=== PATIENT | male | born 1960 | race Caucasian/White ===

== ENCOUNTER 2018-05-31 16:24 | Emergency (ER) | payer OTHER, SELFPAY ==
[2018-05-31] VITALS (33 sets, daily range): BP systolic 123–157; BP diastolic 74–108; PULSE 50–68; RESP 12–23; TEMP 35.9–36.9; O2SAT 93–100
--- NOTE | 2018-05-31 16:33 | ED.GENADUL_ITS ---
Discharge Plan Disposition Patient Disposition: [facility] Discharge Details Chief Complaint: GenMedical Clinical Impression: Ethylene glycol poisoning Primary Care Provider: Arturo Collier ED Provider: Nicholas Slaughter Home Meds and New Rx's Prescriptions: No Action aspirin 81 MG tablet,chewable 81 mg PO DAILY Qty: 90 RF: 0 Atorvastatin Calcium 10 MG tablet 10 mg PO HS Qty: 90 RF: 3 prednisone 20 MG tablet 2 tab PO DAILY Qty: 14 RF: 0 Discharge Data Discharge Date/Time-TO BE ENTERED AT DEPARTURE: 05/31/18 20:06 Medical Decision Making 18:00 --57-year-old male presents after accidental ingestion of mouthful of ethylene glycol around 3:30 PM. Asymptomatic. No signs of toxic ingestion on exam. Labs reviewed and anion gap acidosis noted at 13.7. Called and spoke with [facility] and discussed patient presentation, ED course and diagnostic results as well as limitation of diagnostic capbility. They recommend IV hydration, repeating blood levels at 4 hours to assess for worsening acidosis. If no worsening acidosis they recommend holding an additional 4 hours and rechecking levels. If clinical status remains stable and no worsening acidosis, they recommend discharge. If clinical status worsens or patient more acidotic, they recommend transfer to a facility where treatment can be provided and ideally ethylene glycol can be checked. 18:50 -- ETOH elevated at 170. I am concerned that I cannot obtain serum osmolality or ethylene glycol level here at [facility]. Also no fomepizole and no ethanol availability to treat emergently. I called and spoke with Dr. Matias at [facility] who will accept the patient in transfer. Awaiting medic availability. HPI General Mode of arrival: ambulatory . Date/Time Provider Initiated Documentation: 05/31/18 16:30 . Limitations to Documentation: no limitations . Information obtained by: patient . HPI Narrative: 57-year-old male presents with chief complaint of accidental ingestion of ethylene glycol. Patient notes that about 1 hour prior to arrival he accidentally took a large swig of antifreeze Zerex. This ingestion was accidental. No SI. Patient denies associated abdominal pain and nausea/vomiting. Of note, patient consumed 4 alcoholic beverages today prior to this ingestion. Related Data Home Medications Medication Instructions Recorded Confirmed aspirin 81 mg PO DAILY #90 tab-cap 03/01/17 05/31/18 prednisone 2 tab PO DAILY #14 tab 01/11/18 05/31/18 Previous Rx's Medication Instructions Recorded prednisone 2 tab PO DAILY #14 tab 01/11/18 Allergies Allergy/AdvReac Type Severity Reaction Status Date / Time No Known Allergies Allergy Unverified 05/31/18 16:34 Review of Systems Constitutional Denies body ache(s) and Denies fatigue Eyes Denies change in vision Cardiovascular Denies syncope, Denies palpitations and Denies dyspnea Respiratory Denies dyspnea Gastrointestinal Denies nausea and Denies vomiting Neurologic Denies syncope Psychiatric Denies suicidal ideation Endocrine Denies fatigue and Denies palpitations PFSH Family History Mother Essential hypertension Father Neoplasm Sister No problems noted. Sister No problems noted. Sister No problems noted. Brother No problems noted. Daughter No problems noted. Daughter No problems noted. Social History Smoking/Tobacco Use Status: Former Tobacco Use Surgical History Arthroplasty of knee HERNIA REPAIR Social History Smoking/Tobacco Use Status: Former Tobacco Use Exam Const General: cooperative and no acute distress Orientation: alert, awake and oriented x3 Other: smells of etoh HENMT Head: normocephalic and atraumatic Mouth: moist mucous membranes Eyes Conjunctivae: normal conjunctivae Sclera: normal sclerae EOM: EOM intact bilaterally Neck Neck: trachea midline and supple Resp Auscultation: clear to auscultation bilaterally, no rales, no rhonchi and no wheezes Cardio Jugular venous pressure: no JVD Rate: regular rate and not tachycardic Rhythm: regular rhythm GI Palpation: soft, not firm, no guarding, no masses, not rigid and nontender Skin General skin exam: no rashes or lesions noted Neuro General: alert, awake, oriented x3 and tone normal Extrem General: no edema Psych Appearance: grossly normal Mental Status: mental status grossly normal Speech and Movement: speech and movement normal
[2018-05-31] MEDS: Normal Saline Flush 10 ML SYR IVP (16:40)
[2018-05-31] MEDS: Normal Saline 1,000 ML 1000 ML IV (16:40)
[2018-05-31 16:57] LABS: Abs Immature Grans 0.03 k/cumm (0.0-0.09); Absolute Basophil Count 0.03 k/cumm (0.0-0.2); Absolute Eosinophil Count 0.23 k/cumm (0.0-0.7); Absolute Lymphocyte Count 2.04 k/cumm (1.2-3.4); Absolute Monocyte Count 0.55 k/cumm (0.11-0.7); Absolute Neutrophil Count 2.19 k/cumm (1.2-6.7); Basophils % 0.6; Eosinophils % 4.5; HCT 42.2 % (40.0-50.0); HGB 14.7 g/dL (13.5-17.5); Immature Grans % 0.6; Lymphocytes % 40.2; Mean Corp. HGB Concentration 34.8 g/dL (32.0-36.0); Mean Corpuscular Hemoglobin 31.7 pg (27.0-33.0); Mean Corpuscular Volume 91.1 fL (80-95); Mean Platelet Volume 9.2 fL (8.0-11.0); Monocytes % 10.8; Neutrophils % 43.3; Platelet Count 186 x1000/uL (130-400); RBC 4.63 m/cumm (4.50-6.00); RBC Distribution Width 12.9 % (11.8-14.1); White Blood Cell Count 5.07 k/cumm (4.4-10.8)
[2018-05-31 17:08] LABS: ALT 55 U/L (12-78); Albumin 4.3 g/dL (3.4-5.0); Alkaline Phosphatase 50 U/L (46-116); Anion Gap 13.7 mmol/L (3-11); BUN 16 mg/dL (7-18); Bilirubin, Total 0.2 mg/dL (0.2-1.0); CO2 23.3 mmol/L (21.0-32.0); Calcium 8.8 mg/dL (8.5-10.1); Chloride 104 mmol/L (98-107); Glucose 116 mg/dL (70-100); Potassium 3.9 mmol/L (3.5-5.1); Sodium 141 mmol/L (136-145); Total Protein 7.6 g/dL (6.4-8.2)
[2018-05-31 17:45] LABS: AST 42 U/L (15-37)
[2018-05-31 18:24] LABS: ETHANOL BLOOD 170.5 mg/dL (<3)
[2018-05-31] MEDS: Normal Saline 1,000 ML 150 ML IV (18:33)
[2018-05-31 18:41] LABS: BE (Venous) -1.8 mmol/L (-3-3); HCO3 (Venous) 24 mmol/L (22-28); O2 Sat (Venous) 92 % (70-80); TCO2 (Venous) 22 mmol/L (22-29); pCO2 (Venous) 45 mm/Hg (34-47); pH (Venous) 7.34 (7.32-7.43); pO2 (Venous) 70 mm/Hg (28-44)
[2018-06-01 18:07] LABS: Osmolality Serum 351 mos/kg (275-295)
== END 2018-05-31 20:06 | disposition short-term general hospital (02) ==
LOC: ER 19:02
PROVIDERS: Emergency Provider Student in an Organized Health Care Education/Training Program; PCP Family Medicine
DX: T51.8X1A Toxic effect of other alcohols, accidental (unintentional), initial encounter (principal); E87.2 Acidosis; F10.10 Alcohol abuse, uncomplicated; Y90.6 Blood alcohol level of 120-199 mg/100 ml; I10 Essential (primary) hypertension
CPT/HCPCS: 36415; 80053; 82805; 96360; 96361; 99285; 80320; 83930; 85025

== ENCOUNTER 2018-10-02 06:56 | Outpatient (CLI) | payer OTHER, SELFPAY ==
[2018-10-02 14:14] LABS: Hemoglobin A1C 6.9 % (4.5-6.2)
== END 2018-10-02 07:16 ==
PROVIDERS: PCP Family Medicine; Visit Provider Family Medicine
DX: E11.9 Type 2 diabetes mellitus without complications (principal)
CPT/HCPCS: 36415; 83036

== ENCOUNTER 2019-04-26 12:16 | Outpatient (CLI) | payer OTHER, SELFPAY ==
--- NOTE | 2019-04-26 09:15 | DI.RAD_ITS ---
EXAM: XR FOOT LT COMPLETE INDICATION: contusion plantar aspect left foot, CONTUSION LT FOOT [id number]. COMPARISON: No exams were available for comparison TECHNIQUE: 2D digital imaging was performed. FINDINGS: No fracture or dislocation is seen. There are minimal degenerative changes. There is a tiny planta r calcaneal spur. IMPRESSION: No acute abnormality.
== END 2019-04-26 12:36 ==
PROVIDERS: PCP Family Medicine; Visit Provider Nurse Practitioner
DX: S90.32XA Contusion of left foot, initial encounter (principal); M77.52 Other enthesopathy of left foot and ankle
CPT/HCPCS: 73630

== ENCOUNTER 2020-09-03 03:01 | Outpatient (CLI) | payer BC, SELFPAY ==
[2020-09-03 12:47] LABS: CREATININE 1.1 mg/dL (0.70-1.30); Calculated LDL 159 mg/dL (<100); Cholesterol 250 mg/dL (<200); HDL Cholesterol 48 mg/dL (40-60); Potassium 4.5 mmol/L (3.5-5.1); Triglyceride 218 mg/dL (<150)
[2020-09-03 18:54] LABS: PSA, Screening 0.6 ng/mL (0.0-3.5)
== END 2020-09-03 03:02 | disposition home or self-care (01) ==
LOC: LOS 03:01
PROVIDERS: PCP Family Medicine; Visit Provider Family Medicine
DX: I10 Essential (primary) hypertension (principal); E78.5 Hyperlipidemia, unspecified; Z12.5 Encounter for screening for malignant neoplasm of prostate
CPT/HCPCS: 36415; 80061; 84153; 82565; 84132

== ENCOUNTER 2021-03-22 16:54 | Outpatient (REF) | payer BC, SELFPAY ==
[2021-03-24 13:33] LABS: COVID-19 RT-PCR UVMMC Result Negative (Negative)
== END 2021-03-22 16:55 | disposition home or self-care (01) ==
LOC: NCHCN 16:54
PROVIDERS: PCP Family Medicine; Visit Provider Physician Assistant
DX: Z20.822 Contact with and (suspected) exposure to COVID-19 (principal)
CPT/HCPCS: U0003

== ENCOUNTER 2021-06-26 16:22 | Outpatient (REF) | payer BC, SELFPAY ==
[2021-06-27 10:42] LABS: COVID-19 RT-PCR UVMMC Result Negative (Negative)
== END 2021-06-26 16:23 | disposition home or self-care (01) ==
LOC: LBN 16:22
PROVIDERS: PCP Family Medicine; Visit Provider Physician Assistant
DX: Z20.822 Contact with and (suspected) exposure to COVID-19 (principal); J34.89 Other specified disorders of nose and nasal sinuses
CPT/HCPCS: U0003

== ENCOUNTER 2021-12-03 01:33 | Outpatient (CLI) | payer BC, SELFPAY ==
[2021-12-03 12:31] LABS: CREATININE 1.3 mg/dL (0.70-1.30); Calculated LDL 132 mg/dL (<100); Cholesterol 246 mg/dL (<200); Estimated GFR 56.31 (mL/min/1.73m2); HDL Cholesterol 49 mg/dL (40-60); Potassium 4.5 mmol/L (3.5-5.1); Triglyceride 328 mg/dL (<150)
== END 2021-12-03 01:34 | disposition home or self-care (01) ==
LOC: LOS 01:33
PROVIDERS: PCP Family Medicine; Visit Provider Family Medicine
DX: I10 Essential (primary) hypertension (principal); E78.5 Hyperlipidemia, unspecified
CPT/HCPCS: 36415; 80061; 82565; 84132

== ENCOUNTER 2022-03-30 07:58 | Outpatient (CLI) | payer BC, SELFPAY ==
[2022-03-30 12:39] LABS: ALT 64 U/L (16-63); AST 32 U/L (15-37)
[2022-03-30 13:00] LABS: Hemoglobin A1C 6.6 % (<5.7)
== END 2022-03-30 07:59 | disposition home or self-care (01) ==
PROVIDERS: PCP Family Medicine; Referring Provider Family Medicine; Visit Provider Family Medicine
DX: E78.5 Hyperlipidemia, unspecified (principal); K76.0 Fatty (change of) liver, not elsewhere classified; R73.9 Hyperglycemia, unspecified
CPT/HCPCS: 36415; 83036; 84450; 84460

== ENCOUNTER 2022-03-30 08:52 | Outpatient (REF) | payer BC, SELFPAY ==
[2022-03-30 22:34] LABS: Albumin ug/mg Crea 13 (<30); Albumin, Ur 0.9 mg/dL (See Note); Creatinine, Ur 67.2 mg/dL (See Note)
== END 2022-03-30 08:53 | disposition home or self-care (01) ==
LOC: LBN 08:52
PROVIDERS: PCP Family Medicine; Visit Provider Family Medicine
DX: E11.9 Type 2 diabetes mellitus without complications (principal)
CPT/HCPCS: 82043; 82570

== ENCOUNTER 2022-04-04 07:25 | Emergency (ER) | payer BC, SELFPAY ==
[2022-04-04 07:28] VITALS: BP 154/79; PULSE 64; RESP 18; TEMP 37; O2SAT 98
--- NOTE | 2022-04-04 07:39 | ED.GENADUL_ITS ---
Discharge Plan Disposition Patient Disposition: HOME Condition: Good Discharge Details Clinical Impression: Foreign body of finger of left hand Primary Care Provider: Farshad Nascimento ED Provider: Bebe Slaughter Home Meds and New Rx's Prescriptions: New cephalexin 500 mg capsule 500 mg PO Q6H Qty: 3 0RF Continued albuterol sulfate [Proventil HFA] 90 mcg/actuation HFA aerosol inhaler 2 puff inhalation Q6H PRN (Reason: shortness of breath or wheezing) Qty: 6.7 0RF atorvastatin 20 mg tablet 20 mg PO QPM Qty: 30 2RF lisinopril 20 mg tablet 20 mg PO DAILY Qty: 90 3RF Rybelsus 7 mg tablet 7 mg PO DAILY Qty: 30 5RF (DME) blood sugar diagnostic Strip See Rx Instructions .ROUTE .MEDSUPPLY Qty: 100 3RF Rx Instructions: test once/day (DME) lancets [OneTouch Delica Lancets] 33 gauge misc See Rx Instructions .ROUTE .MEDSUPPLY Qty: 100 3RF Rx Instructions: test once/day Discharge Instructions Instructions: Finger Laceration (ED) Additional Instructions: Please return immediately to the emergency department if you develop any new or worsening symptoms, if your condition does not improve as expected, or if you become otherwise concerned. It is extremely important that you call soon as possible to make an appointment to be seen in follow-up for this visit by your primary care doctor. Referrals: Farshad Nascimento MD [Primary Care Provider] - Discharge Data Discharge Date/Time-TO BE ENTERED AT DEPARTURE: 04/04/22 10:02 Medical Decision Making Concern for foreign body, possible bony pathology of the left fifth digit. Exam/history at this time is not consistent with other injury of the hand/digits, tendon injury, acute emergent life-threatening process. Plan for x-rays. xrays show FB at the 5th PIP joint. I discussed case with ortho given need to open wound for FB removal, proximity to joint. I performed digital block of the left 5th digit. Dr. Bush at bedside, performed incision and FB removal without complication. He recommends no closure of wound, wound dressing with gauze, 24 hours of prophylactic Keflex. I had a discussion with Patient regarding return to emergency department precautions, home care, and importance of outpatient follow-up. Pt verbalizes understanding of the plan and is amenable. Patient discharged to home with clear plan for outpatient follow-up. All questions were answered. Disposition decision was made weighing the risks and benefits of hospitalization versus outpatient treatment, the risk for further decompensation, and the patient's wishes. Medical Records Medical records reviewed: Yes I reviewed the patient's medical records. Imaging Data Radiologic Study: Attestation: I personally reviewed and interpreted this imaging study as follows: Radiologist's impression: EXAM:? XR FINGER LT LITTLE CLINICAL HISTORY: ? trauma, concern for FB.? TECHNIQUE:? 2D digital imaging was performed.? Three views. COMPARISON:? None. FINDINGS: BONES: No acute fracture is present. No bony destructive lesion is seen. JOINTS: No dislocation present. SOFT TISSUE: There is a linear metallic foreign body seen in the volar soft tissues at the level of the proximal interphalangeal joint. IMPRESSION: Metallic soft tissue foreign body. HPI General Mode of arrival: ambulatory . Date/Time Provider Initiated Documentation: 04/04/22 07:35 . Limitations to Documentation: no limitations . Information obtained by: patient, RN notes reviewed and old records reviewed . HPI Narrative: Arturo Meadows is a 61-year-old man with history of [id number] diabetes, hyperlipidemia, hypertension presenting to the emergency department with finger injury. Patient reports that he was hammering metal when he felt a piece of metal enter his left fifth digit from the palmar surface at the PIP joint. Clinton freitas reports that he has pain in that area and cannot bend that digit. He denies any other injury, any other pain. Unsure of last tetanus dose. Patient reports that he was previously well in his usual state of health. No fever/cough/shortness of breath/vomiting/diarrhea/weakness/numbness/rash. Related Data Home Medications Medication Instructions Recorded Confirmed albuterol sulfate 90 mcg/actuation 2 puff inhalation Q6H PRN 08/10/21 04/04/22 aerosol inhaler (Proventil HFA) shortness of breath or wheezing #6.7 grams lisinopril 20 mg tablet 20 mg PO DAILY #90 tabs 10/07/21 04/04/22 semaglutide 7 mg tablet (Rybelsus) 7 mg PO DAILY #30 tabs 12/28/21 04/04/22 blood sugar diagnostic #100 ea 03/11/22 03/30/22 lancets 33 gauge (OneTouch Delica #100 ea 03/11/22 03/30/22 Lancets) atorvastatin 20 mg tablet 20 mg PO QPM #30 tabs 03/30/22 04/04/22 cephalexin 500 mg capsule 500 mg PO Q6H #3 caps 04/04/22 Previous Rx's Medication Instructions Recorded albuterol sulfate 90 mcg/actuation 2 puff inhalation Q6H PRN 08/10/21 aerosol inhaler (Proventil HFA) shortness of breath or wheezing #6.7 grams lisinopril 20 mg tablet 20 mg PO DAILY #90 tabs 10/07/21 semaglutide 7 mg tablet (Rybelsus) 7 mg PO DAILY #30 tabs 12/28/21 blood sugar diagnostic #100 ea 03/11/22 lancets 33 gauge (OneTouch Delica #100 ea 03/11/22 Lancets) atorvastatin 20 mg tablet 20 mg PO QPM #30 tabs 03/30/22 cephalexin 500 mg capsule 500 mg PO Q6H #3 caps 04/04/22 Allergies Allergy/AdvReac Type Severity Reaction Status Date / Time No Known Allergies Allergy Verified 04/04/22 07:31 General Stated Complaint: Laceration AUGUSTIN: 4 Review of Systems Narrative: Constitutional: denies fevers Eyes: denies eye pain ENT: denies ear pain, dental pain, sore throat Cardiovascular: denies chest pain Respiratory: denies SOB, cough GI: denies abdominal pain, vomiting, diarrhea : denies flank pain MSK: Reports pain at left fifth digit PIP joint, denies back pain, neck pain, other arthralgias, myalgias Skin: denies rash Neuro: denies headaches, numbness, weakness PFSH All Active Problems (Updated 04/04/22 @ 09:36 by Bebe Slaughter MD) Foreign body of finger of left hand (Acute) Hyperlipidemia LDL goal <70 (Acute) Chest pain (Acute) Sensorineural hearing loss (Acute) Tinnitus, right (Acute) Asymmetrical sensorineural hearing loss (Acute) Hearing loss (Acute) COVID-19 (Acute ~07/30/21) MARCELO (obstructive sleep apnea) (Chronic) Allergic rhinitis (Acute) Meralgia paresthetica (Acute) Type 2 diabetes mellitus (Chronic) Essential hypertension (Chronic 06/19/13) Carpal tunnel syndrome of left wrist (Chronic 09/15/16) 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 Rhinitis (Chronic) Alcohol abuse with alcohol-induced sleep disorder (Chronic) Mild atherosclerosis of carotid artery (Chronic) Medical History Contusion, foot Surgical History Arthroplasty of knee LEFT KNEE AND REPAIR HERNIA REPAIR RIGHT Family History Mother Essential hypertension Father Neoplasm LUNG Social History Smoking/Tobacco Use Status: Former Tobacco Use Smoking risk assessment performed?: Yes Alcohol Intake: current Alcohol Intake frequency: 0-2 drinks per day Alcohol type: beer Substance use type: does not use Caregiver/Support person: No Household members: spouse Housing: house Communication Needs: Hard of Hearing Do you need help understanding health information?: Rarely Pets and animals: Yes Pets and animals: dog(s) Do you think of yourself as: straight/heterosexual Current gender identity: male What is your relationship status?: How often do you talk on the phone with friends or family?: decline to answer How often do you get together with friends or relatives?: decline to answer How often do you attend anabaptism or advent services?: decline to answer Panel score (0-1 are the most socially isolated patients): 1 Duration: < 15 minutes/day Frequency: 1-2 times per week Mindy/Denominational: Anabaptist Special mindy needs: No Seatbelt use: always Helmet use: Yes Helmet use: sometimes Do you feel safe at home: Yes Do you feel safe in your relationship?: Yes Exam Narrative Exam Narrative: Constitutional: well and [id number], pleasant, conversing normally HENT: head atraumatic/normocephalic/normal inspection, mucous membranes moist Eyes: conjunctiva normal, sclera normal, pupils 3mm b/l Neck: no stridor, normal ROM, trachea midline Resp: normal work of breathing, speaking in full sentences Cardio: normal rate, normal rhythm Skin: warm, dry, normal color, no rash Neuro: alert, not altered, grossly non-focal, normal tone Ext:1 mm puncture wound at the palmar surface of the left fifth PIP joint, no edema, no bleeding. No other skin wound to hand. No tenderness to palpation of the hand or other digits. Brisk cap refill all digits. There is focal tenderness palpation of the left PIP joint, no tenderness to palpation of the DIP joint, MCP joint. Able to range other digits normally. Cannot flex fifth digit secondary to pain. Psych: normal mood, normal affect, normal behavior Course Vital Signs Vital signs: Vital Signs Temperature 37.0 C 04/04/22 07:28 Pulse 64 04/04/22 07:28 Respiratory Rate 18 04/04/22 07:28 Blood Pressure 154/79 H 04/04/22 07:28 Pulse Oximetry 98 04/04/22 07:28 Temperature 37.0 C 04/04/22 07:28 Temperature Source Temporal Artery Scan 04/04/22 07:28 Pulse 64 04/04/22 07:28 Respiratory Rate 18 04/04/22 07:28 Respiratory Effort Non-Labored 04/04/22 07:32 Blood Pressure 154/79 H 04/04/22 07:28 Blood Pressure Position Supine 04/04/22 07:28 Pulse Oximetry 98 04/04/22 07:28 Oxygen Delivery Method Room Air 04/04/22 07:28 Oxygen Flow Rate 0 04/04/22 07:28 Pain Level 8 04/04/22 07:32 Procedures Nerve Block Nerve Block 1: Time out performed: Yes Local Anesthetic: Lidocaine 1% Amount of anesthesia used (mL): 4 Side: left Nerve Blocks: digital Procedure Successful: Yes Patient Tolerated Procedure: well and no complications Complications: none PAWSS Have you Been Recently Intoxicated or Drunk Within the Last 30 days?: No Have you Ever Experienced Previous Episodes of Alcohol Withdrawal?: No Have you ever Experienced Withdrawal Seizures?: No Have you ever Experienced Delirium Tremens(DT)s?: No Have you ever undergone Alcohol Rehabilitation Treatment (i.e, inpt ot outpatient treatment programs)?: No Have you ever Experienced Blackouts?: No Have you ever Combined Alcohol with other Downers within the last 90 days?: No Have you ever Combined Alcohol with any other Substance of Abuse during the last 90 days?: No Positive Blood Alcohol level on Presentation? [PCS.BAL]: No Evidence of Increased Autonomic Activity (i.e. HR>120, tremor, sweating, agitation, nausea)?: No Result: 0
--- NOTE | 2022-04-04 07:59 | DI.VRAD_ITS ---
PROCEDURE INFORMATION: Exam: XR Left Finger(s) Exam date and time: 04/04/2022 7:46 AM Age: 61 years old Clinical indication: Injury or trauma; Other: Fb; Puncture; Left; Little finger TECHNIQUE: Imaging protocol: Radiologic exam of the Left fingers. Views: Minimum 2 views. COMPARISON: No relevant prior studies available. FINDINGS: Bones/joints: No acute fracture or dislocation Soft tissues: Linear radiopaque foreign body measuring 7 mm projecting adjacent to the proximal interphalangeal joint IMPRESSION: Linear radiopaque foreign body adjacent to the 5th proximal interphalangeal joint No acute fracture noted Dictated and Authenticated by: Jhonatan Parmar MD. Ordering:MEGAN Spence MD
--- NOTE | 2022-04-04 08:00 | DI.RAD_ITS ---
Exam(s) XR FINGER LT LITTLE EXAM: XR FINGER LT LITTLE CLINICAL HISTORY: trauma, concern for FB. TECHNIQUE: 2D digital imaging was performed. Three views. COMPARISON: None. FINDINGS: BONES: No acute fracture is present. No bony destructive lesion is seen. JOINTS: No dislocation present. SOFT TISSUE: There is a linear metallic foreign body seen in the volar soft tissues at the level of t he proximal interphalangeal joint. IMPRESSION: Metallic soft tissue foreign body. DATA REPOSITORY: RADIATION DOSE DELIVERED:
[2022-04-04] MEDS: Ibuprofen 600 MG TAB PO (09:02)
[2022-04-04] MEDS: Bacitracin 1 PACKET TP (09:36)
[2022-04-04] MEDS: Cephalexin 500 MG CAP PO (10:02)
[2022-04-04 10:04] VITALS: BP 154/79; PULSE 64; RESP 18; TEMP 37; O2SAT 98
== END 2022-04-04 10:02 | disposition home or self-care (01) ==
PROVIDERS: Emergency Provider Student in an Organized Health Care Education/Training Program; PCP Family Medicine
DX: S60.457A Superficial foreign body of left little finger, initial encounter (principal); I10 Essential (primary) hypertension; E11.9 Type 2 diabetes mellitus without complications; Z87.891 Personal history of nicotine dependence; W45.8XXA Other foreign body or object entering through skin, initial encounter; Y93.89 Activity, other specified; Z23 Encounter for immunization
CPT/HCPCS: 10120; 90471; 99283; 73140; 99284

== ENCOUNTER → 2022-04-19 01:19 | Outpatient (CLI) | payer BC, SELFPAY ==
--- NOTE | 2022-04-19 06:30 | DI.NM_ITS ---
APPROVED REPORT Exam: Exercise Treadmill Patient Location: Out-Patient Room/Bed: Stress Nurse: Galina Ross RN Ordering Provider:JOSE RAUL MALLORY, Contact Number: [phone] BMI: 29.95 Baseline Rhythm: Sinus Bradycardia/ 1DHB Indications: CHEST PAIN Medical History Medical History: MARCELO, COVID-19, DM II, HTN, ETOH Abuse, Former smoker, HLD Cardiac Medications: Semaglutide, Lisinopril Allergies: No known drug allergies Cardiac Risk Factors: HTN, Hyperlipidemia, Diabetes (non-insulin), Smoking (former) Previous Cardiac Procedures: None Pretest Chest Pain Characteristics: None Exercise History: Physically active Physical Disabilities: None Lung Sounds: Clear to auscultation Heart Sounds: Regular Stress Test Details Test: Exercise stress testing was performed using a Anand protocol. Nuclear Acquisition: Rest Tc-99m/Stress Tc-99m 1 day Rest Isotope: Tc-99m Sestamibi. Dose: 10.0 Date: 04/19/2022 Injection Time: 0900 Stress Isotope: Tc-99m Sestamibi. Dose: 32.0 Date: 04/19/2022 Injection Time: 1030 HR Resting HR Supine: 46 bpm Max Heart Rate (APMHR): 160.358381 bpm Resting HR Standin bpm Target HR (85% APMHR): 136.963774 bpm Max HR Achieved: 162 bpm % of APMHR: 101.25 Recovery HR: 82 bpm HR response to stress: Normal HR response to stress BP Resting BP Supine: 140/78 mmHg Resting BP Standin/78 mmHg Max BP: 188/78 mmHg Recovery BP: 142/70 mmHg BP response to stress: Normal blood pressure response to stress. ECG Resting ECG: Sinus Bradycardia, 1st degree AV block Ectopy: None Stress ECG: Sinus Tachycardia ST Change: Downsloping ST depression Lead(s): inferior leads Stage: [address] Deviation: 2 mm Arrhythmia: None Recovery ECG: Sinus Rhythm Recovery ST Change: No significant ST segment changes noted Recovery Arrhythmia: rare PAC Clinical Reason for Termination: Fatigue, Dyspnea Stress Symptoms: Dyspnea Exercise duration: 10 min33 sec Highest Stage Reached: Stage 4: 4.2 mph at 16% grade. Exercise capacity: 12.7 METs Larkin Treadmill Score: 10.1 Rate Pressure Product: 36009 Stress ECG Conclusion 1. Resting electrocardiogram showed poor R wave progression, minor ST abnormalities 2. Patient exercised on the Anand protocol and completed a workload of 12.7 METS, limited by dyspnea 3. Normal heart rate and blood pressure response to exercise. Patient achieved 101% of predicted hea rt rate for age 4. Electrocardiographic portion of the test was equivocal for myocardial ischemia 5. There were no significant dysrhythmias 6. See MPI report Larkin Treadmill Score is 10.1 which is Low risk. Stress Test Summary STAGE Time (mins) Speed (mph) Grade (%) HR BP SpO2 SYMPTOMS METS Supine 46 140/78 Standing 53 128/78 98 1 3 1.7 10 88 140/72 96 4.5 2 6 2.5 12 98 160/80 97 7 3 9 3.4 14 125 180/86 98 10 1 min recovery 140 182/72 98 3 min recovery 81 188/78 98 6 min recovery 82 142/70 98 MPI Conclusion Normal myocardial perfusion without evidence of ischemia or prior infarction EF 61%, normal wall motion Radiologist Interpretation Radiologist Interpretation by: Terrance John MD Interpretation Date/Time: 04/19/2022 16:58:29
== END ==
PROVIDERS: PCP Family Medicine; Visit Provider Family Medicine
DX: R07.9 Chest pain, unspecified (principal)
CPT/HCPCS: 78452; 93017

== ENCOUNTER 2022-08-30 02:14 | Outpatient (CLI) | payer BC, SELFPAY ==
[2022-08-30 12:30] LABS: ALT 58 U/L (16-63); AST 29 U/L (15-37)
[2022-09-01 09:20] LABS: Lab Add On Test DONE
[2022-09-01 09:51] LABS: Uric Acid 6.3 mg/dL (3.5-7.2)
== END 2022-08-30 02:15 | disposition home or self-care (01) ==
LOC: LOS 02:14
PROVIDERS: PCP Family Medicine; Visit Provider Family Medicine
DX: K76.0 Fatty (change of) liver, not elsewhere classified (principal); E78.5 Hyperlipidemia, unspecified; M10.9 Gout, unspecified
CPT/HCPCS: 36415; 84450; 84460; 84550

== ENCOUNTER 2022-09-01 08:11 | Outpatient (REF) | payer BC, SELFPAY ==
[2022-09-01 13:22] LABS: Microalb ug/mg Crea 13.9 ug/mg Cr
== END 2022-09-01 08:12 | disposition home or self-care (01) ==
LOC: LBN 08:11
PROVIDERS: PCP Family Medicine; Visit Provider Family Medicine
DX: E11.9 Type 2 diabetes mellitus without complications (principal)
CPT/HCPCS: 82043; 82570

== ENCOUNTER 2022-09-07 11:08 | Outpatient (CLI) | payer BC, SELFPAY ==
--- NOTE | 2022-09-07 10:00 | DI.RAD_ITS ---
Exam(s) XR HIP LT COMPLETE AP PELVIS EXAM: XR HIP LT COMPLETE AP PELVIS CLINICAL HISTORY: left hip pain. TECHNIQUE: 2D digital imaging was performed of the left hip. Two views were obtained. AP pelvis an d lateral left hip views were obtained. COMPARISON: No exams were available for comparison FINDINGS: BONES: No acute fracture is present. No bony destructive lesion is seen. JOINTS: No dislocation present. There is mild narrowing and spurring seen at the left hip. SOFT TISSUE: Normal. IMPRESSION: Mild degenerative changes of the left hip. DATA REPOSITORY: RADIATION DOSE DELIVERED:
== END 2022-09-07 11:28 ==
PROVIDERS: PCP Family Medicine; Visit Provider Family Medicine
DX: M25.552 Pain in left hip (principal); M16.12 Unilateral primary osteoarthritis, left hip
CPT/HCPCS: 73502

== ENCOUNTER → 2023-09-01 00:35 | Outpatient (CLI) | payer BC, SELFPAY ==
--- NOTE | 2023-09-01 07:30 | DI.US_ITS ---
APPROVED REPORT EXAM: Comprehensive 2D, Doppler, and color-flow Echocardiogram Patient Location: Out-Patient Corporate Associate Attorney: Maxi Velázquez RDCS (AE) Indications: murmur Conclusion Borderline concentric left ventricular hypertrophy. Ejection fraction is 65%. There is normal systo lic and diastolic function, normal wall motion Normal right ventricular size and function Both atria are normal size Aortic valve is sclerotic and trileaflet without stenosis or regurgitation There is no additional significant valvular disease Wall motion Left Ventricle The left ventricle is normal size. The left ventricular systolic function is normal. The left ventric ular ejection fraction is within the normal range. Borderline concentric left ventricular hypertrophy . The left ventricular diastolic function is normal. There is no ventricular septal defect visualized . LVEF is 64-68%. Right Ventricle The right ventricle is normal size. The right ventricular systolic function is normal. Atria The left atrium size is normal. The right atrium size is normal. The interatrial septum is intact wit h no evidence for an atrial septal defect. Aortic Valve The Aortic valve is sclerotic. No hemodynamically significant valvular aortic stenosis. No aortic reg urgitation is present. Mitral Valve The mitral valve is normal in structure. No evidence of mitral valve stenosis. Trace mitral regurgita tion. Tricuspid Valve The tricuspid valve is normal in structure. There is no tricuspid valve stenosis. Trace tricuspid reg urgitation. The RVSP is 7.8 mmHg. Pulmonic Valve The pulmonary valve is normal in structure. There is no pulmonic valvular stenosis. Trace pulmonic re gurgitation. Great Vessels The aortic root is normal in size. The ascending aorta is normal in size. Aortic arch is normal in ca liber. IVC is normal in size and collapses >50% with inspiration. Pericardium There is no pericardial effusion. 2D Dimensions IVSD d PLAX 1.10 cm M: 0.6-1.2 Ao Root d 2.85 cm M: 3.1 - 3.7 LVPW d PLAX 1.06 cm M: 0.6 - 1.2 Ao Asc Diam d 3.02 cm M: 2.6 - 3.4 LVID d PLAX 4.52 cm M: 4.2 - 5.8 LVDs 2.91 cm M: 2.5 - 4.0 LV EF Teichholz 65.3 % FS 35.70 % LV EDV (Teich) 93.5 mL LV ESV (Teich) 32.4 mL Stroke Vol Index (Teich) 32.33 M-Mode TAPSE 2.04 cm (M/F) >1.7 Auto EF LV EDV A4C 114.7 mL LV EDV A2C 97.8 mL LV EDV BP 107.4 mL LV ESV A4C 40.7 mL LV ESV A2C 31.1 mL LV ESV BP 36.0 mL LVEF(%) A4C 64.5 % LVEF(%) A2C 68.2 % LVEF(%) BP 66.5 % LV SV A4C 73.9 ml LV SV A2C 66.7 ml LV SV BP 71.4 ml LV CO A4C 4.3 L/min LV CO A2C 3.8 L/min LV CO BP 4.0 L/min HR A4C 57.88 BPM HR A2C 57.24 BPM LV EDV Index (BP) LA Volume LA Length A4C 5.5 cm LA Length A2C 4.5 cm LA Area A4C s 12.44 cm2 LA Area A2C s 13.50 cm2 LA Vol A4C A-L 23.92 mL LA Vol A2C A-L 34.30 mL LA Vol Biplane A-L 31.6 mL LA Vol/BSA A4C A-L LA Vol/BSA A2C A-L LA Vol/BSA BP A-L 16.7 mL/m2 LA Vol A4C MOD 23.3 mL LA Vol A2C MOD 33.1 mL LA Vol BP MOD 30.5 mL RA Volume RA Area A4C 8.9 cm2 RA ESV A4C (A-L) 19.2mL RA Vol/BSA A4C A-L RA Length A4C 3.5 cm RA ESV A4C (MOD) 17.1mL LV Diastology MV E' medial 0.095 (>0.07 m/s) MV E Vmax 0.91 (0.4-1.3 m/s) MV E/E' MED 9.51 (<14) MV A Vmax 0.75 (0.4-1.3 m/s) MV E' lateral 0.122 (>0.1 m/s) E/A Ratio 1.2 MV E/E' LAT 7.43 (<14) MV E' Average 0.109 m/s MV E/E'(average) 8.34 Aortic Valve AoV Vmax 2.00 m/s LVOT Vmax 1.10 m/s AoV Peak Grad 16.0 mmHg LVOT Peak Grad 4.8 mmHg AoV Area (Vmax) 1.19 cm2 LVOT VTI 0.246 m AoV VTI 0.443 m LVOT Mean Grad 2.5 mmHg AoV Mean Eris. 1.35 m/s LVOT SV 53.47 mL AoV Mean Grad 8.4 mmHg LVOT Diam s 1.65 cm AoV Area (VTI) 1.21 cm2 Velocity Ratio 0.55 Mitral Valve MV DT 223 (160-240 msec) Pulmonary Valve PV Vmax 1.17 (0.5-1.5 m/s) RVOT Vmax 0.61 m/s PV Peak Grad 5.5 mmHg RVOT Peak Gr. 1.5 mmHg PV Mean Eris 0.79 m/s RVOT VTI 0.153 m PV Mean Grad 2.9 mmHg RVOT Mean Gr. 0.9 mmHg Tricuspid Valve RA Pressure 3.00 mmHg TR Vmax 1.09 m/s TR Peak Grad 4.7 mmHg RVSP (TR) 7.8 mmHg
== END ==
PROVIDERS: PCP Family Medicine; Visit Provider Family Medicine
DX: R01.1 Cardiac murmur, unspecified (principal)
CPT/HCPCS: 93306

== ENCOUNTER 2023-09-06 15:34 | Outpatient (REF) | payer BC, SELFPAY ==
[2023-09-06 21:47] LABS: COMMENT (LAB VIEW ONLY) 206.19 mg/dL; Microalb ug/mg Crea 13.5 ug/mg Cr
== END 2023-09-06 15:35 | disposition home or self-care (01) ==
LOC: LBN 15:34
PROVIDERS: PCP Family Medicine; Visit Provider Family Medicine
DX: E11.9 Type 2 diabetes mellitus without complications (principal)
CPT/HCPCS: 82043; 82570

== ENCOUNTER 2023-09-28 05:47 | Outpatient (CLI) | payer BC, SELFPAY ==
[2023-09-28 12:43] LABS: CREATININE 1.1 mg/dL (0.70-1.30); Calculated LDL 78 mg/dL (<100); Cholesterol 155 mg/dL (<200); Estimated GFR 76.37 (mL/min/1.73m2); HDL Cholesterol 54 mg/dL (40-60); Potassium 4.3 mmol/L (3.5-5.1); Triglyceride 116 mg/dL (<150)
== END 2023-09-28 05:48 | disposition home or self-care (01) ==
LOC: LOS 05:47
PROVIDERS: PCP Family Medicine; Visit Provider Family Medicine
DX: I10 Essential (primary) hypertension (principal); E78.5 Hyperlipidemia, unspecified
CPT/HCPCS: 36415; 80061; 82565; 84132

== ENCOUNTER 2024-09-12 09:44 | Outpatient (CLI) | payer BC, SELFPAY ==
[2024-09-12 12:56] LABS: CREATININE 1.4 mg/dL (0.70-1.30); Calculated LDL 155 mg/dL (<100); Cholesterol 256 mg/dL (<200); Estimated GFR 56.83 (mL/min/1.73m2); HDL Cholesterol 57 mg/dL (>or=40); Potassium 4.5 mmol/L (3.5-5.1); Triglyceride 221 mg/dL (<150)
[2024-09-12 16:49] LABS: Lab Add On Test DONE
[2024-09-12 17:01] LABS: BUN 20 mg/dL (7-18)
[2024-09-12 18:32] LABS: PSA, Screening 0.9 ng/mL (<=4.5)
[2024-09-13 09:51] LABS: HIV-1/2 Ag & Ab Screen Negative (Negative)
[2024-09-13 09:56] LABS: HBs Antibody, Quant <3.1 mIU/mL (See Note); Hep B Surface Ab Negative (See Note); Hepatitis B Core Antibody Negative (Negative); Hepatitis B Surface Antigen Negative (Negative)
[2024-09-13 10:05] LABS: Hepatitis C Ab w Rflx HCV PCR Negative (Negative)
== END 2024-09-12 09:45 | disposition home or self-care (01) ==
LOC: LOS 09:44
PROVIDERS: PCP Family Medicine; Referring Provider Family Medicine; Visit Provider Family Medicine
DX: Z12.5 Encounter for screening for malignant neoplasm of prostate (principal); E78.5 Hyperlipidemia, unspecified; I10 Essential (primary) hypertension; Z11.59 Encounter for screening for other viral diseases; Z00.00 Encounter for general adult medical examination without abnormal findings
CPT/HCPCS: 36415; 80061; 84153; 84520; 86704; 86706; 86803; 87340; 87389; 82565; 84132

== ENCOUNTER 2024-09-12 11:25 | Outpatient (REF) | payer BC, SELFPAY ==
[2024-09-12 14:30] LABS: COMMENT (LAB VIEW ONLY) 153.39 mg/dL; Microalb ug/mg Crea 8.2 ug/mg Cr
== END 2024-09-12 11:26 | disposition home or self-care (01) ==
LOC: LBN 11:25
PROVIDERS: PCP Family Medicine; Visit Provider Family Medicine
DX: E11.9 Type 2 diabetes mellitus without complications (principal); I10 Essential (primary) hypertension; Z12.5 Encounter for screening for malignant neoplasm of prostate; E78.5 Hyperlipidemia, unspecified
CPT/HCPCS: 82043; 82570

== ENCOUNTER 2024-12-04 10:30 | Outpatient (CLI) | payer BC, SELFPAY ==
--- NOTE | 2024-12-04 10:00 | DI.RAD_ITS ---
Exam(s) XR WRIST LT COMP NAVICULAR EXAM: XR WRIST LT COMP NAVICULAR CLINICAL HISTORY: M25.532 Left wrist pain. TECHNIQUE: 2D digital imaging was performed. Three views. COMPARISON: CR,XR XR FINGER LT LITTLE from 04/04/2022 FINDINGS: BONES: No acute fracture is present. No bony destructive lesion is seen. JOINTS: The carpal bones are normally aligned. Mild degenerative changes at the radial carpal joint . SOFT TISSUE: Normal. IMPRESSION: Mild degenerative changes at the radiocarpal joint. DATA REPOSITORY: RADIATION DOSE DELIVERED:
== END 2024-12-04 10:50 ==
LOC: DI 10:30
PROVIDERS: PCP Family Medicine; Visit Provider Family Medicine
DX: M25.532 Pain in left wrist (principal)
CPT/HCPCS: 73110

== ENCOUNTER 2024-12-27 10:51 | Outpatient (CLI) | payer BC, SELFPAY ==
--- NOTE | 2024-12-27 09:30 | DI.RAD_ITS ---
Exam(s) XR WRIST LT COMP NAVICULAR EXAM: XR WRIST LT COMP NAVICULAR CLINICAL HISTORY: L wrist pain. TECHNIQUE: 2D digital imaging was performed of the left wrist. Four images were obtained. Scaphoid, PA, oblique and lateral views were obtained. COMPARISON: CR,XR XR FINGER LT LITTLE from 04/04/2022 CR XR WRIST LT COMP NAVICULAR from 12/04/2024 FINDINGS: BONES: No acute or healing fractures identified. No bony destructive lesion is seen. JOINTS: The carpal bones are normally aligned. SOFT TISSUE: There is a linear 2-3 mm density in the soft tissues adjacent to the proximal phalanx of the left thumb. This is unchanged and can be seen on the examination from 04/04/2022. No suspicious foreign bodies are seen. IMPRESSION: No acute abnormality. DATA REPOSITORY: RADIATION DOSE DELIVERED:
== END 2024-12-27 10:52 | disposition home or self-care (01) ==
LOC: DIORS 10:51
PROVIDERS: PCP Family Medicine; Visit Provider Physician Assistant
DX: M25.532 Pain in left wrist (principal); G56.02 Carpal tunnel syndrome, left upper limb; S69.92XA Unspecified injury of left wrist, hand and finger(s), initial encounter
CPT/HCPCS: 73110

== ENCOUNTER 2025-04-14 09:11 | Emergency (ER) | payer OTHER, SELFPAY ==
[2025-04-14] VITALS (26 sets, daily range): BP systolic 111–169; BP diastolic 71–95; PULSE 49–79; RESP 12–20; TEMP 36.6; O2SAT 87–100
--- NOTE | 2025-04-14 09:30 | DI.CT_ITS ---
Exam(s) CT BRAIN NECK CTA EXAM: CT BRAIN NECK CTA CLINICAL HISTORY: Vision blurriness, pulsitile. TECHNIQUE: Imaging Protocol: Axial CT angiography was performed with multi- slice acquisition and multi-planar and/or 3D reconstructions. CONTRAST MATERIAL: Intravenous: Omnipaque 350 contrast volume:70 mL COMPARISON: CT HEAD WITHOUT STROKE PROTOCOL from 01/03/2017 FINDINGS: CT Head W/O and W: Ventricles and Extra axial spaces: Normal in size and morphology for the patient's age. Hemorrhage: None. Cerebral parenchyma: There is no evidence of an acute territorial infarct or mass effect. There is a normal johnston-white matter differentiation. Midline shift: None. Brainstem/Cerebellum: Normal. Calvarium: Normal. Visualized Paranasal sinuses/Mastoids: There is mild mucosal thickening in the visualized paranasal sinuses. Mucous retention cysts are seen in the left sphenoid sinus in the right maxillary sinus. The mastoid air cells are clear. Soft Tissues: Unremarkable. Enhancement: Unremarkable. CTA Neck W: Common Carotid: Right: No dissection, occlusion or significant stenosis. Left: No dissection, occlusion or significant stenosis. External Carotid: Right: No occlusion or significant stenosis. Left: No occlusion or significant stenosis. Internal Carotid: Mild atherosclerotic calcification is seen at the origins of the internal carotid arteries but no significant stenosis is present. Right: No dissection, occlusion or significant stenosis. Left: No dissection, occlusion or significant stenosis. Vertebral Artery: Right: No dissection, occlusion or significant stenosis. Left: No dissection, occlusion or significant stenosis. Lung Apices: Normal. Bones: Within normal limits for the patient's age. Soft Tissues: Normal. Thyroid gland: Unremarkable. CTA Brain W: Internal Carotid Arteries: Normal. Anterior Cerebral Arteries: Right: No aneurysm, occlusion or significant stenosis. Left: No aneurysm, occlusion or significant stenosis. Middle Cerebral Arteries: Right: No aneurysm, occlusion or significant stenosis. Left: No aneurysm, occlusion or significant stenosis. Posterior Cerebral Arteries: The left posterior cerebral artery arises from the left posterior communicating artery which is a normal variant. Right: No aneurysm, occlusion or significant stenosis. Left: No aneurysm, occlusion or significant stenosis. Vertebral Arteries: Right: No aneurysm, occlusion or significant stenosis. Left: No aneurysm, occlusion or significant stenosis. Basilar Artery: No aneurysm, occlusion or significant stenosis. IMPRESSION: 1. No large vessel occlusion or significant stenosis on the CT angiography of the head. 2. No acute intracranial process. 3. No occlusion or significant stenosis on the CT angiography of the neck. RADIATION DOSE DELIVERED: 2,256.05mGy.cm Total DLP DATA REPOSITORY: All CT scans at this facility are submitted to the National Radiology Data Registry (NRDR) Dose Index Registry (DIR) with the [employer] (ACR). RADIATION OPTIMIZATION: All CT scans at this facility use at least one of these dose optimization techniques: automated exposure control; mA and/or kV adjustment per patient size (includes targeted exams where dose is matched to clinical indication); or iterative reconstruction.
--- NOTE | 2025-04-14 09:30 | RT.EKG_ITS ---
APPROVED REPORT Exam: Resting ECG Reason for Exam: CP Patient Location: E HR:49 bpm ECG Measurements Heart Rate 49 AXIS NE 239 P 64 QRSd 94 QRS 62 QT 427 T 84 QTc 385 Conclusion Sinus bradycardia, rate 49 1st degree HB, NE interval 239ms No STEMI No priors available for comparison
--- NOTE | 2025-04-14 09:43 | W.ED.GENAD ---
Discharge Plan Disposition Patient Disposition: Home Condition: Stable Discharge Details Clinical Impression: Chest tightness, Blurred vision, bilateral Primary Care Provider: Farshad Nascimento ED Provider: Tameka Moran Home Meds and New Rx's Prescriptions: New artificial tears(hypromellose) 0.5 % drops 1 drp ophthalmic (eye) 4-8XD PRNQty: 15 0RF No Action atorvastatin [Lipitor] 10 mg tablet 10 mg PO DAILY Qty: 30 2RF losartan 100 mg tablet 100 mg PO DAILY Qty: 90 3RF mometasone 50 mcg/actuation spray,non-aerosol 2 spray intranasal DAILY PRN (Reason: nasal congestion) Qty: 17 2RF Rx Instructions: administer into each nostril (DME) blood sugar diagnostic Strip See Rx Instructions .ROUTE .MEDSUPPLY Qty: 100 3RF Rx Instructions: test once/day (DME) lancets [OneTouch Delica Lancets] 33 gauge misc See Rx Instructions .ROUTE .MEDSUPPLY Qty: 100 3RF Rx Instructions: test once/day Rybelsus 14 mg tablet 14 mg PO DAILY Qty: 90 3RF Discharge Instructions Instructions: Chest Pain, Adult ED Additional Instructions: You were seen in the emergency department today for evaluation of blurry vision and tightness in her chest. In our department a full physical examination performed, had a reassuring EKG and laboratory studies. You had a CT scan of your brain and blood vessels that did not show any sign of stroke, blood vessel changes, or other abnormalities that would explain your symptoms. Your symptoms resolved after a dose of nitroglycerin but did not recur after that medicine wore off. I do recommend that we get you tied in with cardiology and reach out to your primary care provider to discuss this referral. You may require stress testing, cardiac echo, etc. I do recommend that you trial artificial tears, as the blurriness in your vision may be due to dry eye in the setting of screen use at work. I have sent a prescription for a bottle to your pharmacy, if these are cost prohibitive you can always purchase them [id number]. Please follow-up with your primary care provider in the next few days to discuss this visit and any symptoms that change, worsen, or persist. Thank you for allowing us to be part of your care. Stand Alone Forms: Work Release HPI General Mode of arrival: ambulatory. Date/Time Provider Initiated Documentation: 04/14/25 09:12. Limitations to Documentation: no limitations. Information obtained by: patient, family and old records reviewed. HPI Narrative: This is a 64-year-old male patient with a history of stroke, type 2 diabetes, MARCELO, presenting for evaluation of vision changes and chest tightness. The patient reports that at about 830 this morning he was working at his computer and noted that his eyes seem to be pulsating, with intermittent blurry vision left greater than right. He reports no eye pain, loss of vision, flashers or floaters. States that the symptoms have persisted, and his vision still feels blurry, though now it is primarily on the left side. He states that around the same time he developed some tightness in his chest, denies pain, radiation, shortness of breath. The patient reports that he did not take any medications for management of these conditions prior to arrival. Recently had an eye doctor visit that did not show any evidence of diabetic retinopathy, wears glasses for work, no contact lenses. Denies trauma or foreign body exposure to the eyes, endorses a chronic history of left hand numbness, which has been present for longer than the eye and chest symptoms today. Related Data Home Medications ?Medication ?Instructions ?Recorded ?Confirmed blood sugar diagnostic #100 ea 03/11/22 04/14/25 lancets 33 gauge (OneTouch Delica #100 ea 03/11/22 04/14/25 Lancets) mometasone 50 mcg/actuation nasal 2 spray intranasal DAILY PRN nasal 12/12/23 04/14/25 spray congestion #17 grams semaglutide 14 mg tablet (Rybelsus) 14 mg PO DAILY #90 tabs 06/11/24 04/14/25 atorvastatin 10 mg tablet (Lipitor) 10 mg PO DAILY #30 tabs 03/04/25 04/14/25 losartan 100 mg tablet 100 mg PO DAILY #90 tabs 03/04/25 04/14/25 artificial tears(hypromellose) 0.5 1 drp ophthalmic (eye) 4-8XD PRN 04/14/25 % eye drops #15 mL Previous Rx's ?Medication ?Instructions ?Recorded blood sugar diagnostic #100 ea 03/11/22 lancets 33 gauge (OneTouch Delica #100 ea 03/11/22 Lancets) mometasone 50 mcg/actuation nasal 2 spray intranasal DAILY PRN nasal 12/12/23 spray congestion #17 grams semaglutide 14 mg tablet (Rybelsus) 14 mg PO DAILY #90 tabs 06/11/24 atorvastatin 10 mg tablet (Lipitor) 10 mg PO DAILY #30 tabs 03/04/25 losartan 100 mg tablet 100 mg PO DAILY #90 tabs 03/04/25 artificial tears(hypromellose) 0.5 1 drp ophthalmic (eye) 4-8XD PRN 04/14/25 % eye drops #15 mL Allergies Allergy/AdvReac Type Severity Reaction Status Date / Time benzonatate AdvReac Intermediate Skin Rash Verified 04/14/25 09:14 atorvastatin AdvReac Mild Myalgias Verified 04/14/25 09:14 General Stated Complaint: EyeProblem AUGUSTIN: 3 Exam Narrative Exam Narrative: Gen: awake and alert, in no apparent distress. Appears well nourished. HEENT: PERRL at 3 mm bilaterally, EOMs full and without nystagmus. Conjunctiva noninjected. external ears and nose normal, mucous membranes moist. Neck: Supple, full range of motion, no observable masses Lungs: No increased work of breathing, lung sounds clear and equal bilaterally without wheezes, rhonchi, or rales. CV: Heart with regular rate and rhythm, systolic murmur appreciated and consistent with documented history. Strong and symmetrical radial pulses. Abdomen: Soft, nondistended, non-tender to palpation. No rigidity, rebound tenderness, or guarding. MSK: No joint swelling, no redness. Full ROM without limitation, no external traumatic findings. Skin: No rashes or lesions to visualized skin. Normal color, warm, and dry. Neuro: Cranial nerves II-XII intact and symmetrical bilaterally. 5/5 strength in all muscle groups x4 extremities. No sensory deficits. Ambulates with steady gait. Psych: Appropriate for situation. Course Vital Signs Vital signs: Vital Signs Temperature 36.6 C 04/14/25 09:13 Pulse 58 L 04/14/25 09:13 Respiratory Rate 20 04/14/25 09:13 Blood Pressure 169/79 H 04/14/25 09:13 Pulse Oximetry 99 04/14/25 09:13 Temperature 36.6 C 04/14/25 09:13 Temperature Source Oral 04/14/25 09:13 Pulse 58 L 04/14/25 09:13 Respiratory Rate 20 04/14/25 09:13 Blood Pressure 169/79 H 04/14/25 09:13 Blood Pressure Position Sitting 04/14/25 09:13 Pulse Oximetry 99 04/14/25 09:13 Oxygen Delivery Method Room Air 04/14/25 09:13 Oxygen Flow Rate 0 04/14/25 09:13 Pain Level 0 04/14/25 09:13 Medical Decision Making This is a 64-year-old male patient presenting for evaluation of chest tightness and vision blurriness that started about 1 hour ago. My differential includes but is not limited to ACS including STEMI, NSTEMI, unstable angina, certainly considered arrhythmia, pericarditis/myocarditis, aortic pathology. Considered pulmonary abnormalities including pneumonia, bronchitis, pleural effusion, pulmonary edema, reactive airway disease, pneumothorax. The patient is without tachycardia, hypoxia, or a pleuritic component to his pain to significantly increase my concern for pulmonary embolism. No GI symptoms or vomiting to suggest Boerhaave's, esophagitis, peptic ulcer disease, pancreatitis. Considered musculoskeletal pathologies including costochondritis, chest wall pain. Regarding his eye changes, certainly considered stroke, vascular abnormalities including dissection and aneurysm, no vision loss to suggest CRAO or CRVO. Skouu-vw-efay ultrasound less concerning for retinal detachment or vitreous hemorrhage. No eye redness or pain to suggest glaucoma, optic neuritis, uveitis. We obtained an EKG, which shows a sinus bradycardia with a first-degree heart block but no evidence for acute ischemia. We will provide the patient with aspirin, obtain labs to include CBC, CMP, magnesium, troponin, and INR, and will obtain a CTA of the brain and neck and a chest x-ray to better characterize any abnormalities which might explain the patient's symptoms. I will provide the patient with a dose of nitroglycerin for his chest tightness. - I independently interpreted the laboratory studies, which show no significant leukocytosis, anemia, or thrombocytopenia. The chemistry panel is without evidence of electrolyte abnormality, kidney dysfunction, or liver injury. Troponin is negative and without interval increase on 1 and 3-hour delta rechecks to suggest active ischemia. Imaging reviewed, CTA with no evidence of infarct, vascular abnormality or intracranial hemorrhage. Chest x-ray without focal cardiopulmonary abnormalities to explain the patient's symptoms. Given that the patient never had any true neurodeficits, I do not feel that the symptoms are significantly concerning for stroke/TIA, do not feel that a teleneurology consultation is indicated at this time. The patient did have resolution of his chest tightness with the nitro, his blurry vision also resolved spontaneously. I monitored the patient in the ED for several hours and he did not have a recurrence of his symptoms after the nitroglycerin would have been presumed to have worn off. I did reach out to the patient's primary care provider as I think he would benefit from expedited follow-up for stress testing, cardiac echo, etc. I provided him with a prescription for artificial tears as the onset of blurry vision occurred during use of screens and could represent dry eye. I counseled the patient extensively on return precautions, to include recurring chest pain, shortness of breath, dizziness, numbness, weakness, or tingling of 1 part of the body or the other, and any other symptoms that cause concern. At this time, the patient has had a full medical evaluation and is safe for discharge to home. They are hemodynamically stable, ambulatory, and tolerating PO. They are understanding of the follow-up plan and return precautions. They left our facility without incident. 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 Color vision deficiency (Chronic) RED/GREEN COLOR BLINDNESS Essential hypertension (Chronic 06/19/13) Type 2 diabetes mellitus (Chronic) Meralgia paresthetica (Acute) Allergic rhinitis (Acute) MARCELO (obstructive sleep apnea) (Chronic) COVID-19 (Acute ~07/30/21) Hearing loss (Acute) Asymmetrical sensorineural hearing loss (Acute) Tinnitus, right (Acute) Sensorineural hearing loss (Acute) Chest pain (Acute) Hyperlipidemia LDL goal <70 (Acute) Mood disorder (Acute) Chronic cough (Acute) Podagra (Acute) Pain in left hip (Acute) Rhinosinusitis (Acute) Medical History (Updated 04/14/25 @ 13:13 by Tameka Moran MD) Contusion, foot Surgical History (Updated 12/27/24 @ 10:01 by SUSI Lambert) Carpal tunnel syndrome of left wrist (09/15/16) S/P ECTR: 09/28/2024 HERNIA REPAIR RIGHT Arthroplasty of knee LEFT KNEE AND REPAIR Family History Mother Essential hypertension Father Neoplasm LUNG Social History Smoking/Tobacco Use Status: Former Tobacco Use (Quit 20Y ago) tobacco type: cigarettes Tobacco: How many years used: 20 Quit status: has quit before Second Hand Exposure: No Smoking risk assessment performed?: Yes Alcohol Intake: current Alcohol type: beer Drug use: Never Substance use type: does not use Counseling given: No Caregiver/Support person: No Household members: spouse Housing: house Communication Needs: Hard of Hearing Do you need help understanding health information?: Rarely Pets and animals: Yes Pets and animals: dog(s) Sexually active: Yes Do you think of yourself as: straight/heterosexual Current gender identity: male What is your relationship status?: How often do you talk on the phone with friends or family?: once per week How often do you get together with friends or relatives?: decline to answer How often do you attend gnosticist or uatsdin services?: decline to answer Do you belong to any clubs or organized social groups?: decline to answer Panel score (0-1 are the most socially isolated patients): 1 What type of physical activity do you participate in: none Mindy/Denominational: Alevism Special mindy needs: No Seatbelt use: always Helmet use: Yes Helmet use: sometimes Drive intox or ride w/intox light truck driver: No Do you feel safe at home: Yes Do you feel safe in your relationship?: Yes POCUS Exam (ED) Limited Ocular Exam DATE OF EXAM: 04/14/25 TIME OF EXAM: 09:51 PROVIDER THAT PERFORMED THE STUDY: Tameka Moran OCULAR EXAM: Right eye INDICATION FOR RIGHT EYE EXAM: Decreased vision VISUALIZED STRUCTURES: Right optic nerve and Right lens. PERTINENT FINDINGS/IMPRESSION OF THE RIGHT EYE: No apparent abnomalities and Left eye INDICATION FOR LEFT EYE EXAM: Decreased vision. VISUALIZED STRUCTURES: Left optic nerve and Left lens PERTINTINENT FINDINGS/IMPRESSION OF THE LEFT EYE: No apparent abnormalities: Exam complete
[2025-04-14] MEDS: Aspirin 81 MG CHEW 324 MG CH (09:44)
[2025-04-14 09:52] LABS: Abs Immature Grans 0.01 10^3/uL (0.0-0.06); HCT 40.8 % (40.0-50.0); HGB 13.6 g/dL (13.5-17.5); Immature Grans % 0.3 %; MCH 31.0 pg (27.0-33.0); MCHC 33.3 % (32.0-36.0); MCV 93 fL (80-95); MPV 9.1 fL (8.0-11.0); Platelet Count 140 10^3/uL (130-400); RBC 4.39 10^6/uL (4.36-5.78); RDW 12.6 % (11.8-14.1); RDW-SD 43.0 fL; WBC 3.61 10^3/uL (4.4-10.8)
[2025-04-14] MEDS: Omnipaque 350 MG/ML 100 ML BTL IJ (09:56)
[2025-04-14] MEDS: Normal Saline - Diluent 50 ML VIAL IJ (09:56)
[2025-04-14] MEDS: Normal Saline Flush 10 ML SYR IVP (09:56)
[2025-04-14 10:02] LABS: INR 1.1 (0.9-1.1); Prothrombin Time 10.7 sec (9.1-11.1)
--- NOTE | 2025-04-14 10:15 | DI.RAD_ITS ---
Exam(s) XR CHEST 2V PA LATERAL EXAM: XR CHEST 2V PA LATERAL CLINICAL HISTORY: Chest pain TECHNIQUE: 2D digital imaging was performed of the chest. Two images were obtained. PA and lateral views were obtained. COMPARISON: CR CHEST 2 VIEWS PA,LAT from 01/03/2017 FINDINGS: MEDIASTINUM: Normal. HEART: Normal. PULMONARY VASCULATURE: Normal. LUNGS: Clear. PLEURAL SPACE: No pleural effusion or pneumothorax. BONE:Within normal limits for the patient's age. OTHER FINDINGS:Normal. IMPRESSION: No acute pulmonary findings. DATA REPOSITORY: RADIATION DOSE DELIVERED:
[2025-04-14 10:17] LABS: ALT 58 U/L (16-63); AST 37 U/L (15-37); Albumin 4.1 g/dL (3.4-5.0); Alkaline Phosphatase 54 U/L (46-116); Anion Gap 9.6 mmol/L (3-11); BUN 18 mg/dL (7-18); Bilirubin, Total 0.4 mg/dL (0.2-1.0); CO2 25.4 mmol/L (21.0-32.0); Calcium 8.7 mg/dL (8.5-10.1); Chloride 103 mmol/L (98-107); Estimated GFR 75.43 (mL/min/1.73m2); Glucose 232 mg/dL (74-106); Magnesium 2.0 mg/dL (1.8-2.4); Potassium 4.5 mmol/L (3.5-5.1); Sodium 138 mmol/L (136-145); Total Protein 7.0 g/dL (6.4-8.2); Troponin I 8 ng/L (<or=76)
[2025-04-14] MEDS: nitroGLYcerin 0.4 MG TAB SL (10:57)
[2025-04-14 11:04] LABS: Troponin I 9 ng/L (<or=76)
[2025-04-14 13:04] LABS: Troponin I 9 ng/L (<or=76)
--- NOTE | 2025-04-14 13:42 | NUR.NOTE ---
Nursing Note:1102 pt says he has no discomfort in his chest at that time.
== END 2025-04-14 13:30 | disposition home or self-care (01) ==
PROVIDERS: Emergency Provider Emergency Medicine; PCP Family Medicine
DX: R07.89 Other chest pain; H53.8 Other visual disturbances; E11.9 Type 2 diabetes mellitus without complications; Z86.79 Personal history of other diseases of the circulatory system
CPT/HCPCS: 99284 ×2; 36415; 70496; 70498; 76512; 80053; 93005; 71046; 83735; 84484; 85025; 85610; 93010; J3490